=== PATIENT | male | born 1940 | race Caucasian/White ===

== ENCOUNTER 2023-08-25 10:24 | Outpatient (CLI) | payer MEDICARE ==
[2023-08-25 12:27] LABS: #Basophils 0.1 10x3/uL (0.0-0.2); #Eosinphils 0.1 10x3/uL (0.0-0.5); #Monocytes 0.7 10x3/uL (0.0-1.1); #Neutrophils 3.2 10x3/uL (1.5-8.4); %Basophils 0.8 % (0.0-2.0); %Eosinophils 1.2 % (0.0-6.0); %Lymphocytes 32.9 % (18.0-47.0); %Monocytes 11.9 % (0.0-10.0); Hematocrit 37.5 % (38.8-50.0); Hemoglobin 12.5 g/dL (13.5-17.5); Mean Corpuscular HGB CONC 33.3 g/dL (32.0-36.0); Mean Corpuscular Hemoglobin 33.2 pg (27.0-33.0); Mean Corpuscular Volume 99.7 fl (81.2-95.1); Mean Platelet Volume 9.2 fl (7.4-10.4); Platelet Count 278 10x3/uL (150-450); RBC Distribution Width 12.5 % (11.5-14.5); Red Blood Cell (RBC) Count 3.76 10x6/uL (4.32-5.72)
[2023-08-25 12:42] LABS: Prothrombin Time 10.3 sec (9.5-12.1)
[2023-08-25 13:07] LABS: Anion Gap 15 mmol/L (10-20); BUN (Urea Nitrogen) 20 mg/dL (8.4-25.7); Calc. Creatinine Clearance 0 mL/min (70-130); Calcium 8.9 mg/dL (7.8-10.44); Carbon Dioxide 25 mmol/L (23-31); Chloride 101 mmol/L (98-107); Estimated GFR 69; Glucose 98 mg/dL (83-110); Potassium 4.7 mmol/L (3.5-5.1); Sodium 136 mmol/L (136-145)
== END 2023-08-25 10:25 | disposition home or self-care (01) ==
LOC: LABBT 10:24
PROVIDERS: ATTEND Orthopaedic Surgery
DX: Z01.812 Encounter for preprocedural laboratory examination (principal); M87.9 Osteonecrosis, unspecified
CPT/HCPCS: 80048; 85025; 85610; 87081

== ENCOUNTER 2023-08-25 10:30 | Inpatient (IN) | payer MEDICARE, OTHER ==
[2023-08-25 10:54] VITALS: BMI 22.0
[2023-08-28] MEDS ORDERED: Sodium Chloride 0.9% 100 ML ONE ×2 (06:01→06:59)
[2023-08-28] MEDS ORDERED: Tranexamic Acid 1,000 MG/10 ML VIAL ONE (06:01)
[2023-08-28] MEDS ORDERED: Vancomycin 1 GM/200 ML (FROZEN) BAG ONE (06:02)
[2023-08-28] MEDS ORDERED: Propofol 1,000 MG/100 ML VIAL IV ONE (06:21)
[2023-08-28] MEDS ORDERED: fentaNYL PF 100 MCG/2 ML SYRINGE ONE (06:29)
[2023-08-28] MEDS ORDERED: ePHEDrine Sulfate 50 MG/10 ML VIAL ONE ×2 (06:45→07:49)
[2023-08-28] MEDS ORDERED: CEFAZOLIN 2 GM VIAL ONE (06:56)
[2023-08-28] MEDS ORDERED: Zolpidem Tartrate 5 MG TAB PO PRN (07:04)
[2023-08-28] MEDS ORDERED: Promethazine HCl 25 MG/ML VIAL IM PRN ×2 (07:04→08:00)
[2023-08-28] MEDS ORDERED: Ondansetron PF 4 MG/2 ML Vial IVP PRN (07:04)
[2023-08-28] MEDS ORDERED: fentaNYL 50 mcg/mL 1 mL Vial SLOW IVP PRN (07:04)
[2023-08-28] MEDS ORDERED: diphenhydrAMINE 25 MG CAP PO PRN (07:04)
[2023-08-28] MEDS ORDERED: Lidocaine 1% (PF) 30 ML VIAL ONE (07:16)
[2023-08-28] MEDS ORDERED: Ropivacaine 0.5% HCl/PF (150 MG/30 ML VIAL) ONE (07:16)
[2023-08-28] MEDS ORDERED: Ondansetron HCl/PF 4 MG/2 ML Vial IVP PRN (08:00)
[2023-08-28] MEDS ORDERED: Bupivacaine PF 0.5% 30 ML VIAL ONE (08:08)
[2023-08-28] MEDS ORDERED: fentaNYL 50 mcg/mL 1 mL Vial ONE ×4 (10:11→13:33)
[2023-08-28] MEDS ORDERED: HYDROmorphone 0.5 MG/0.5 ML SYRINGE ONE (11:00)
[2023-08-28] MEDS ORDERED: Ondansetron PF 4 MG/2 ML Vial ONE (12:24)
[2023-08-28] MEDS: Sodium Chloride 0.9% 1,000 ML IV SCH ×2 (15:06→17:32)
[2023-08-28] MEDS: Lisinopril 10 MG TAB PO SCH ×2 (15:06→20:32)
[2023-08-28] MEDS: Aspirin 81 mg Enteric Coated Tablet PO SCH ×2 (15:06→20:32)
[2023-08-28] MEDS: Phenytoin Extended Release 100 MG CAP PO SCH ×3 (15:07→21:00)
[2023-08-28] MEDS: Carbidopa/Levodopa 25-100 mg Tablet PO SCH ×2 (15:07→20:32)
[2023-08-28] MEDS: Polyethylene Glycol 3350 17 GM Packet PO SCH (15:07)
[2023-08-28] MEDS: CEFAZOLIN 2 GM in Sodium Chloride 0.9% 100 ML IVPB SCH ×2 (15:25→23:21)
[2023-08-28] MEDS: Acetaminophen 325 MG TAB PO PRN (17:29)
[2023-08-28] MEDS: traMADol HCl 50 MG TAB PO PRN ×2 (17:30→23:23)
[2023-08-29] MEDS: Sodium Chloride 0.9% 1,000 ML IV SCH ×3 (02:40→22:45)
[2023-08-29] MEDS: Acetaminophen 325 MG TAB PO PRN (04:21)
[2023-08-29] MEDS: traMADol HCl 50 MG TAB PO PRN (05:25)
[2023-08-29 05:27] LABS: Hematocrit 29.7 % (42.0-52.0); Mean Corpuscular HGB CONC 33.7 g/dL (32.0-36.0); Mean Corpuscular Hemoglobin 33.7 pg (27.0-31.0); Mean Platelet Volume 9.5 fL (7.4-10.4); Platelet Count 195 10x3/uL (130-400); RBC Distribution Width 12.3 % (11.5-14.5); Red Blood Cell (RBC) Count 2.97 mill/uL (4.70-6.10); White Blood Cell (WBC) Count 8.2 10x3/uL (4.8-10.8)
[2023-08-29] MEDS: Aspirin 81 mg Enteric Coated Tablet PO SCH ×2 (09:06→20:31)
[2023-08-29] MEDS: Ferrous Gluconate 324 MG TAB PO SCH ×2 (09:06→17:16)
[2023-08-29] MEDS: Phenytoin Extended Release 100 MG CAP PO SCH ×2 (09:06→20:32)
[2023-08-29] MEDS: Senokot S 8.6-50 MG TAB PO SCH ×2 (09:06→20:31)
[2023-08-29] MEDS: Polyethylene Glycol 3350 17 GM Packet PO SCH (09:08)
[2023-08-29] MEDS: Lisinopril 10 MG TAB PO SCH ×2 (09:10→20:35)
[2023-08-29] MEDS ORDERED: HYDROcodone/Acetaminophen 10/325 mg Tablet PO PRN (09:42)
[2023-08-29] MEDS: Carbidopa/Levodopa 25-100 mg Tablet PO SCH ×2 (11:38→20:31)
[2023-08-29] MEDS: Multivitamin W/ Minerals 1 TAB PO SCH (11:38)
[2023-08-30 04:39] LABS: Hematocrit 28.9 % (42.0-52.0); Hemoglobin 9.8 g/dL (14.0-18.0); Mean Corpuscular HGB CONC 33.9 g/dL (32.0-36.0); Mean Corpuscular Hemoglobin 33.7 pg (27.0-31.0); Mean Corpuscular Volume 99.3 fl (78.0-98.0); Mean Platelet Volume 9.4 fL (7.4-10.4); Platelet Count 178 10x3/uL (130-400); RBC Distribution Width 12.2 % (11.5-14.5); Red Blood Cell (RBC) Count 2.91 mill/uL (4.70-6.10); White Blood Cell (WBC) Count 11.1 10x3/uL (4.8-10.8)
[2023-08-30] MEDS: Senokot S 8.6-50 MG TAB PO SCH ×2 (09:55→20:00)
[2023-08-30] MEDS: Carbidopa/Levodopa 25-100 mg Tablet PO SCH ×2 (09:55→19:57)
[2023-08-30] MEDS: Lisinopril 10 MG TAB PO SCH ×2 (09:55→19:57)
[2023-08-30] MEDS: Aspirin 81 mg Enteric Coated Tablet PO SCH ×2 (09:55→19:57)
[2023-08-30] MEDS: Ferrous Gluconate 324 MG TAB PO SCH ×2 (09:56→16:56)
[2023-08-30] MEDS: Polyethylene Glycol 3350 17 GM Packet PO SCH (09:56)
[2023-08-30] MEDS: Phenytoin Extended Release 100 MG CAP PO SCH ×2 (09:56→19:57)
[2023-08-30] MEDS: Sodium Chloride 0.9% 1,000 ML IV SCH (10:06)
[2023-08-30] MEDS: traMADol HCl 50 MG TAB PO PRN (12:35)
[2023-08-30] MEDS: Multivitamin W/ Minerals 1 TAB PO SCH (12:37)
[2023-08-31 06:38] LABS: Hematocrit 28.5 % (42.0-52.0); Hemoglobin 9.6 g/dL (14.0-18.0); Mean Corpuscular HGB CONC 33.7 g/dL (32.0-36.0); Mean Corpuscular Volume 101.1 fl (78.0-98.0); Mean Platelet Volume 9.5 fL (7.4-10.4); Platelet Count 188 10x3/uL (130-400); RBC Distribution Width 12.4 % (11.5-14.5); Red Blood Cell (RBC) Count 2.82 mill/uL (4.70-6.10); White Blood Cell (WBC) Count 10.1 10x3/uL (4.8-10.8)
[2023-08-31] MEDS: Sodium Chloride 0.9% 1,000 ML IV SCH ×3 (07:37→14:22)
[2023-08-31] MEDS: Ferrous Gluconate 324 MG TAB PO SCH ×2 (09:11→13:45)
[2023-08-31] MEDS: Senokot S 8.6-50 MG TAB PO SCH ×2 (09:12→19:53)
[2023-08-31] MEDS: Lisinopril 10 MG TAB PO SCH ×2 (09:12→19:53)
[2023-08-31] MEDS: Aspirin 81 mg Enteric Coated Tablet PO SCH ×2 (09:12→19:53)
[2023-08-31] MEDS: Carbidopa/Levodopa 25-100 mg Tablet PO SCH ×2 (09:12→19:53)
[2023-08-31] MEDS: traMADol HCl 50 MG TAB PO PRN (09:12)
[2023-08-31] MEDS: Polyethylene Glycol 3350 17 GM Packet PO SCH (09:13)
[2023-08-31] MEDS: Phenytoin Extended Release 100 MG CAP PO SCH ×2 (09:16→19:53)
[2023-08-31] MEDS: Multivitamin W/ Minerals 1 TAB PO SCH (13:45)
[2023-09-01] MEDS: Sodium Chloride 0.9% 1,000 ML IV SCH ×3 (01:57→22:33)
[2023-09-01 05:09] LABS: Hematocrit 29.5 % (42.0-52.0); Hemoglobin 9.9 g/dL (14.0-18.0); Mean Corpuscular HGB CONC 33.6 g/dL (32.0-36.0); Mean Corpuscular Hemoglobin 33.9 pg (27.0-31.0); Mean Platelet Volume 9.4 fL (7.4-10.4); Platelet Count 216 10x3/uL (130-400); RBC Distribution Width 12.2 % (11.5-14.5); Red Blood Cell (RBC) Count 2.92 mill/uL (4.70-6.10); White Blood Cell (WBC) Count 7.9 10x3/uL (4.8-10.8)
[2023-09-01] MEDS: traMADol HCl 50 MG TAB PO PRN ×3 (06:10→21:17)
[2023-09-01] MEDS: Ferrous Gluconate 324 MG TAB PO SCH ×2 (08:43→16:26)
[2023-09-01] MEDS: Polyethylene Glycol 3350 17 GM Packet PO SCH (08:44)
[2023-09-01] MEDS: Aspirin 81 mg Enteric Coated Tablet PO SCH ×2 (08:45→21:17)
[2023-09-01] MEDS: Lisinopril 10 MG TAB PO SCH ×2 (08:45→21:17)
[2023-09-01] MEDS: Senokot S 8.6-50 MG TAB PO SCH ×2 (08:45→22:32)
[2023-09-01] MEDS: Phenytoin Extended Release 100 MG CAP PO SCH ×2 (08:46→21:18)
[2023-09-01] MEDS: Carbidopa/Levodopa 25-100 mg Tablet PO SCH ×2 (10:50→21:17)
[2023-09-01] MEDS: Multivitamin W/ Minerals 1 TAB PO SCH (12:56)
[2023-09-02] MEDS: Sodium Chloride 0.9% 1,000 ML IV SCH (06:24)
[2023-09-02 08:27] VITALS: BP 128/78; TEMP 98.7
[2023-09-02] MEDS: Carbidopa/Levodopa 25-100 mg Tablet PO SCH (10:28)
[2023-09-02] MEDS: Ferrous Gluconate 324 MG TAB PO SCH (10:29)
[2023-09-02] MEDS: Lisinopril 10 MG TAB PO SCH (10:29)
[2023-09-02] MEDS: Aspirin 81 mg Enteric Coated Tablet PO SCH (10:29)
[2023-09-02] MEDS: Phenytoin Extended Release 100 MG CAP PO SCH (10:29)
[2023-09-02] MEDS: Polyethylene Glycol 3350 17 GM Packet PO SCH (11:29)
[2023-09-02] MEDS: Senokot S 8.6-50 MG TAB PO SCH (11:29)
== END 2023-09-02 11:40 | disposition home or self-care (01) | DRG 468 ==
LOC: SURG A 08-28 05:33 → EDSTATUS 08-28 10:30 → SURG A 08-28 13:50
PROVIDERS: ADMIT Orthopaedic Surgery; ATTEND Orthopaedic Surgery
PROC: 0SR90JZ Replacement of Right Hip Joint with Synthetic Substitute, Open Approach (ICD-10-PCS; principal; 2023-08-28)
PROC: 0SP90JZ Removal of Synthetic Substitute from Right Hip Joint, Open Approach (ICD-10-PCS; 2023-08-28)
DX: M87.00 Idiopathic aseptic necrosis of unspecified bone (principal); Z79.899 Other long term (current) drug therapy; Z98.890 Other specified postprocedural states; Z98.52 Vasectomy status
CPT/HCPCS: 36415; 85027; C1776; J1170; J2001; J2405; J2704; J2795; J3010; J3370-JW; J3490; S0020